=== PATIENT | female | born 1930 | race Caucasian/White ===

== ENCOUNTER 2017-03-15 12:46 | Observation (INO) | payer OTHER ==
[~2017-03-15 12:46] MED LIST: ASAB PO; LIOR10 PO; PCET PO; ZESTRIL30 MG PO
[2017-03-15] MEDS ORDERED: PR12.5 (13:07)
[2017-03-15] MEDS ORDERED: ALPHA LIPOIC300 MG PO (13:09)
[2017-03-15] MEDS ORDERED: [UNRECOGNIZED DRUG - OTHER] PO (13:10)
[2017-03-15] MEDS ORDERED: BILBERRY500 MG PO (13:11)
[2017-03-15] MEDS ORDERED: [UNRECOGNIZED DRUG - OTHER] PO (13:12)
[2017-03-15] MEDS ORDERED: CATAPLEX E2 PO (13:13)
[2017-03-15] MEDS ORDERED: BL CHROMIUM200 MCG PO (13:13)
[2017-03-15] MEDS ORDERED: CINNAMONPO PO (13:14)
[2017-03-15] MEDS ORDERED: COLLAGEN PO (13:15)
[2017-03-15] MEDS ORDERED: [UNRECOGNIZED DRUG - CODE] PO (13:16)
[2017-03-15] MEDS ORDERED: [UNRECOGNIZED DRUG - OTHER] PO (13:17)
[2017-03-15] MEDS ORDERED: GINKGO BILO1 PO (13:17)
[2017-03-15] MEDS ORDERED: HAWTHORN BER500 MG PO (13:18)
[2017-03-15] MEDS ORDERED: IODINE PO (13:19)
[2017-03-15] MEDS ORDERED: L-LYSINE500 M1 PO (13:19)
[2017-03-15] MEDS ORDERED: LUTEIN20 MG PO (13:20)
[2017-03-15] MEDS ORDERED: NAC PO (13:21)
[2017-03-15] MEDS ORDERED: [UNRECOGNIZED DRUG - OTHER] PO (13:22)
[2017-03-15] MEDS ORDERED: [UNRECOGNIZED DRUG - CODE] PO (13:23)
[2017-03-15] MEDS ORDERED: VIT C WITH ROSE HIPS PO (13:24)
[2017-03-15] MEDS ORDERED: D 5000 PO (13:24)
[2017-03-15] MEDS ORDERED: ZEAXANTHIN PO (13:25)
[2017-03-15] MEDS ORDERED: [UNRECOGNIZED DRUG - OTHER] PO (13:26)
[2017-03-15 13:36] LABS: HEMOGLOBIN 11.2 g/dL (12.0-16.0); PLATELET COUNT 192 10/3/uL (150-400)
[2017-03-15 13:37] LABS: HEMATOCRIT 34.1 % (36.0-48.0)
[2017-03-15 13:50] LABS: BUN (BLOOD UREA NITROGEN) 14 MG/DL (6-23); CALCIUM, SERUM 9.1 MG/DL (8.5-10.4); CHLORIDE, SERUM 107 MMOL/L (96-112); CO2 (CARBON DIOXIDE) 23 MMOL/L (24-34); CREATININE 0.89 MG/DL (0.55-1.02); GFR AFRICAN AMERICAN 68 ML/MIN (>=60); GFR NON AFRICAN AMERICAN 59 ML/MIN (>=60); POTASSIUM, SERUM 4.7 MMOL/L (3.5-5.3)
[2017-03-15 13:51] LABS: GLUCOSE, SERUM 96 MG/DL (60-99); SODIUM, SERUM 141 MMOL/L (135-148)
== END 2017-03-16 11:32 | disposition home or self-care (01) ==
LOC: CSSUOP 12:46 → RADHOLD 12:57 → SSU1 15:56
PROVIDERS: Physician Assistant
PROC: 0QS03ZZ Reposition Lumbar Vertebra, Percutaneous Approach (ICD-10-PCS; principal; 2017-03-15)
PROC: 0QU03JZ Supplement Lumbar Vertebra with Synthetic Substitute, Percutaneous Approach (ICD-10-PCS; 2017-03-15)
DX: M48.56XA Collapsed vertebra, not elsewhere classified, lumbar region, initial encounter for fracture (principal); M06.9 Rheumatoid arthritis, unspecified; E11.9 Type 2 diabetes mellitus without complications; E78.00 Pure hypercholesterolemia, unspecified; M81.0 Age-related osteoporosis without current pathological fracture; K21.9 Gastro-esophageal reflux disease without esophagitis; G47.30 Sleep apnea, unspecified; M48.06 Spinal stenosis, lumbar region; M41.56 Other secondary scoliosis, lumbar region; M51.36 Other intervertebral disc degeneration, lumbar region; I10 Essential (primary) hypertension; Z88.8 Allergy status to other drugs, medicaments and biological substances; Z79.82 Long term (current) use of aspirin; Z79.899 Other long term (current) drug therapy; Z82.61 Family history of arthritis; Z83.3 Family history of diabetes mellitus; Z82.49 Family history of ischemic heart disease and other diseases of the circulatory system; Z96.653 Presence of artificial knee joint, bilateral; Z90.710 Acquired absence of both cervix and uterus; Z98.890 Other specified postprocedural states; Z99.89 Dependence on other enabling machines and devices
CPT/HCPCS: 22514; 80048; 82962; 85014; 85018; 85049; 99152; 99153; A9270-GY; G0378; J2250; J3010